=== PATIENT | female | born 1935 | race Caucasian/White ===

== ENCOUNTER 2017-05-05 15:44 | Emergency (ER) | payer OTHER, MEDICARE ==
[2017-05-05 15:56] VITALS: BP 199/84; BMI 27.1
[2017-05-05] MEDS ORDERED: NS 1000 ML 1,000 ML ONE (16:01)
[2017-05-05] MEDS ORDERED: NS 1000 ML 1,000 ML IV ONE (16:10)
[2017-05-05 16:17] LABS: BASOPHILS % (AUTO) 0.6 % (0.2-1.0); EOSINOPHILS # (AUTO) 0.1 x10^3/uL (0.0-0.2); HEMOGLOBIN 14.9 g/dL (12.0-16.0); LYMPHOCYTES % (AUTO) 18.2 % (21.0-51.0); MEAN CORPUSCULAR VOLUME 94.3 fL (80.0-100.0); MEAN PLATELET VOLUME 9.2 fL (7.4-11.0); MONOCYTES # (AUTO) 0.5 x10^3/uL (0.3-0.8); MONOCYTES % (AUTO) 9.7 % (0.0-13.0); NEUTROPHILS % (AUTO) 70.5 % (42.0-75.0); PLATELET COUNT 238 X10^3/uL (150.0-450.0); RED BLOOD COUNT 4.66 X10^6/uL (3.5-5.4); RED CELL DISTRIBUTION WIDTH 13.9 % (11.6-16.5); WHITE BLOOD COUNT 5.6 X10^3/uL (3.6-10.0)
[2017-05-05 16:33] LABS: ALANINE AMINOTRANSFERASE 256 Units/L (12-78); ALBUMIN 3.6 g/dL (3.4-5.0); ALKALINE PHOSPHATASE 116 Units/L (46-116); ASPARTATE AMINO TRANSFERASE 96 Units/L (15-37); BLOOD UREA NITROGEN 17 mg/dL (7-18); CALCIUM 9.2 mg/dL (8.5-10.1); CARBON DIOXIDE 30.1 mmol/L (21-32); CHLORIDE 102 mmol/L (98-107); CREATININE 1.07 mg/dL (0.55-1.02); SODIUM 141 mmol/L (136-145); TOTAL PROTEIN 7.2 g/dL (6.4-8.2); eGFR BLACK RACES > 60 (>60); eGFR NON BLACK RACES 52 (>60)
--- NOTE | 2017-05-05 16:45 | DR.GENAD ---
HPI - PCP Primary Care Physician: Shyam MCDERMOTT - Complaint/Symptoms Chief Complaint:: SICK WITH THE VIRUS SINCE . SLIPPED IN BATHROOM 4 DAYS AGO AND INJURED HEAD. IS TAKING BLOOD THINNERS AND FELL AGAIN THIS AM WHEN GETTING INTO BED. PAIN TO THORASIC SPINE AREA PAIN RADIATES TO ANTEROIR RIB AREA Self Treatment fo Chief Complaint: TYLENOL FOR PAIN - Nurses notes reviewed Nurses Notes Review: Yes - Source History Provided: Patient - Mode of Arrival Mode of Arrival: Wheelchair - Timing Onset of Chief Complaint: 04/23/17 PMH - PMH Past Medical History: Yes Past Medical History Comment: AFIB, THYROID PROBLEM SEENG AND HAD A BIOPSY Past Surgical History: Yes Surgical History: Hysterectomy, Ortho Surgery Past Surgical History Comment: KIDNEY - Family History History of Family Medical Conditions: No - Social History Type of Tobacco Use: None Alcohol Use: None Do you use any recreational Drugs:: No Lives With: Alone Lives Where: Home - infectious screening In the last 2 months have you had wt loss of >10#?: YES Have you had fever, night sweats or hemotysis?: No Have you traveled outside the country in the last 6 months?: No Isolation: Standard PE - Vital Signs Vitals: Temperature 97.5 F Pulse Rate 67 Respiratory Rate 16 Blood Pressure 199/84 O2 Sat by Pulse Oximetry 94 ROR - Labs Reviewed Result Diagrams: 05/05/17 16:05 05/05/17 16:05 Laboratory: WBC 5.6 X10^3/uL (3.6-10.0) 05/05/17 16:05 RBC 4.66 X10^6/uL (3.5-5.4) 05/05/17 16:05 Hgb 14.9 g/dL (12.0-16.0) 05/05/17 16:05 Hct 44.0 % (36.0-47.0) 05/05/17 16:05 MCV 94.3 fL (80.0-100.0) 05/05/17 16:05 MCH 32.0 pg (27.0-34.0) 05/05/17 16:05 MCHC 34.0 g/dL (33.0-35.0) 05/05/17 16:05 RDW 13.9 % (11.6-16.5) 05/05/17 16:05 Plt Count 238 X10^3/uL (150.0-450.0) 05/05/17 16:05 MPV 9.2 fL (7.4-11.0) 05/05/17 16:05 Neut % 70.5 % (42.0-75.0) 05/05/17 16:05 Lymph % 18.2 % (21.0-51.0) L 05/05/17 16:05 [place] % 9.7 % (0.0-13.0) 05/05/17 16:05 Eos % 1.0 % (0.9-2.9) 05/05/17 16:05 Baso % 0.6 % (0.2-1.0) 05/05/17 16:05 Neut # 4.0 x10^3/uL (2.2-4.8) 05/05/17 16:05 Lymph # 1.0 X10^3/uL (1.3-2.9) L 05/05/17 16:05 [place] # 0.5 x10^3/uL (0.3-0.8) 05/05/17 16:05 Eos # 0.1 x10^3/uL (0.0-0.2) 05/05/17 16:05 Baso # 0.0 X10^3/uL (0.0-0.1) 05/05/17 16:05 Absolute Nucleated RBC 0.1 /100WBC 05/05/17 16:05 Sodium 141 mmol/L (136-145) 05/05/17 16:05 Corrected Sodium TNP 05/05/17 16:05 Potassium 3.7 mmol/L (3.5-5.1) 05/05/17 16:05 Chloride 102 mmol/L (98-107) 05/05/17 16:05 Carbon Dioxide 30.1 mmol/L (21-32) 05/05/17 16:05 BUN 17 mg/dL (7-18) 05/05/17 16:05 Creatinine 1.07 mg/dL (0.55-1.02) H 05/05/17 16:05 Est GFR (MDRD) Af Amer > 60 (>60) 05/05/17 16:05 Est GFR (MDRD) Non-Af 52 (>60) L 05/05/17 16:05 Glucose 94 mg/dL (65-99) 05/05/17 16:05 Calcium 9.2 mg/dL (8.5-10.1) 05/05/17 16:05 Corrected Calcium TNP 05/05/17 16:05 Total Bilirubin 0.50 mg/dL (0.2-1.0) 05/05/17 16:05 AST 96 Units/L (15-37) H 05/05/17 16:05 ALT 256 Units/L (12-78) H 05/05/17 16:05 Alkaline Phosphatase 116 Units/L (46-116) 05/05/17 16:05 Total Protein 7.2 g/dL (6.4-8.2) 05/05/17 16:05 Albumin 3.6 g/dL (3.4-5.0) 05/05/17 16:05 Globulin 3.6 g/dL (2.5-4.5) 05/05/17 16:05 Albumin/Globulin Ratio 1.0 Ratio (1.1-2.1) L 05/05/17 16:05 Specimen Type Clean catch urine 05/05/17 17:11 Urine Color Yellow (YELLOW) 05/05/17 17:11 Urine Appearance Clear (CLEAR) 05/05/17 17:11 Urine pH 7.0 (5.0 - 8.0) 05/05/17 17:11 Ur Specific Ivel 1.005 (1.000-1.030) 05/05/17 17:11 Urine Protein Negative (NEGATIVE) 05/05/17 17:11 Urine Glucose (UA) Negative (NEGATIVE) 05/05/17 17:11 Urine Ketones Negative (NEGATIVE) 05/05/17 17:11 Urine Occult Blood Negative (NEGATIVE) 05/05/17 17:11 Urine Nitrite Positive (NEGATIVE) 05/05/17 17:11 Urine Bilirubin Negative (NEGATIVE) 05/05/17 17:11 Urine Urobilinogen Normal (NORMAL) 05/05/17 17:11 Ur Leukocyte Esterase 1+ (NEGATIVE) 05/05/17 17:11 Urine RBC 0-2 /HPF (NEGATIVE) 05/05/17 17:11 Urine WBC 0-2 /HPF (NEGATIVE) 05/05/17 17:11 Ur Squamous Epith Cells Negative /HPF (NEGATIVE) 05/05/17 17:11 Urine Bacteria 2+ /HPF (NEGATIVE) 05/05/17 17:11 Ur Culture Indicated? Yes/culture set up 05/05/17 17:11 - Discharge Plan Condition: Stable Prescriptions: Ketorolac Tromethamine [Toradol Tab] 10 mg PO BID PRN #12 tab PRN Reason: Pain Sulfamethoxazole-Trimethoprim [BACTRIM DS TAB 800/160 MG *] 1 tab PO BID #20 tab Tramadol HCl 50 mg PO DAILY PRN #10 tablet PRN Reason: - Follow ups/Referrals Follow ups/Referrals: LEONARD MCDERMOTT [Primary Care Provider] - 3 days - Instructions Instructions: Cephalhematoma, Back Pain, Adult, [id number], Rib Contusion, Urinary Tract Infection, Adult, [id number] Additional Instructions: RETURN TO ED IF WORSE.
[2017-05-05 17:18] LABS: BILIRUBIN,URINE NEGATIVE (NEGATIVE); BLOOD/HEMOGLOBIN,URINE NEGATIVE (NEGATIVE); GLUCOSE, URINE NEGATIVE (NEGATIVE); KETONES,URINE NEGATIVE (NEGATIVE); LEUKOCYTE ESTERASE ,URINE 1+ (NEGATIVE); NITRITES,URINE POSITIVE (NEGATIVE); PROTEIN,URINE NEGATIVE (NEGATIVE); UROBILINOGEN,URINE NORMAL (NORMAL)
[2017-05-05] MEDS ORDERED: TORADOL 30 MG VIAL IM ONE (17:24)
[2017-05-05 17:27] LABS: APPEARANCE,URINE CLEAR (CLEAR); BACTERIA,URINE 2+ /HPF (NEGATIVE); COLOR,URINE YELLOW (YELLOW); RBC,URINE 0-2 /HPF (NEGATIVE); SQUAMOUS EPITHELIAL CELL,UR NEGATIVE /HPF (NEGATIVE)
[2017-05-05] MEDS ORDERED: TORADOL 60 MG VIAL IVP ONE (17:29)
[2017-05-05] MEDS ORDERED: TORADOL 15 MG VIAL ONE (17:31)
--- NOTE | 2017-05-05 17:36 | CT ---
History: Fell in bathroom 4 days ago and fall again this morning with thoracic back pain Study: CT thoracic spine without contrast. Sagittal and coronal reformations were provided. Findings: There is normal alignment without fracture or compression demonstrated. Osteopenia is sugge sted. There are mild degenerative osteophytes. The visualized posterior ribs appear intact. There are degenerative osteophytes about the lower thoracic facet joints. Impression: Lower thoracic facet joint osteoarthritis, no fracture demonstrated. Reported By:
--- NOTE | 2017-05-05 17:43 | CT ---
History: Fell 4 days ago injuring head and fell again this morning. Patient on blood thinners. Study: CT head without contrast. Sagittal and coronal reformations were provided. Findings: The ventricles and sulci are moderately enlarged without mass effect. There is [id number] rate diffuse patchy periventricular white matter low attenuation. There is no intracranial hemorrhage or mass and there is no subdural collection of fluid. The calvarium is intact. 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 No acute disease is demons trated. Reported By:
== END 2017-05-05 19:41 | disposition home or self-care (01) ==
LOC: ER 16:15
DX: S00.93XA Contusion of unspecified part of head, initial encounter (principal); N39.0 Urinary tract infection, site not specified; G31.9 Degenerative disease of nervous system, unspecified; B96.29 Other Escherichia coli [E. coli] as the cause of diseases classified elsewhere; W19.XXXA Unspecified fall, initial encounter; Y92.89 Other specified places as the place of occurrence of the external cause
CPT/HCPCS: 36415; 70450; 72128; 80053; 81001; 85025; 87086; 87088; 87186; 96365; 96367; 96374; 99282; 99283; A4222

== ENCOUNTER 2017-05-12 11:21 | Emergency (ER) | payer OTHER, MEDICARE ==
[2017-05-12 11:33] VITALS: BMI 27.4
--- NOTE | 2017-05-12 11:44 | DR.GENAD ---
HPI - PCP Primary Care Physician: MARK - HPI Comment HPI Comment: HISTORY BELOW. - Complaint/Symptoms Chief Complaint Doctors Comments: FELL OUT OF HER BED AND IS COMPLAINING OF HEADACHE, RT FOREHEAD HEMATOMA, RIGHT FACIAL AND NECK PAIN AND RIGHT FOREARM PAIN. RECENT FEQUENT FALL NOTED. NO LOC. BRUISING LEFT FACE AND NECK. ON XARELTO. Chief Complaint:: PATIENT STATED SHE FELL OUT OF HER BED 3 DAYS AGO AND HIT THE RIGHT SIDE OF HER FACE ON THE BED SIDE TABLE. - Nurses notes reviewed Nurses Notes Review: Yes - Source History Provided: Patient - Mode of Arrival Mode of Arrival: Wheelchair - Timing Onset of Chief Complaint: 05/09/17 Came on: Suddenly - Duration Duration: Constant Duration: Days - Severity Severity: Moderate PMH - PMH Past Medical History: Yes Past Medical History: Hypertension Past Surgical History: Yes Surgical History: Hysterectomy, Ortho Surgery - Family History History of Family Medical Conditions: No - Social History Does patient currently use any type of tobacco product: No Have you used tobacco products in the last 12 months: No Type of Tobacco Use: None Does any household member use tobacco: No Alcohol Use: None Do you use any recreational Drugs:: No Lives With: Family Lives Where: Home - infectious screening In the last 2 months have you had wt loss of >10#?: NO Have you had fever, night sweats or hemotysis?: No Have you traveled outside the country in the last 6 months?: No Isolation: Standard ROS - Review of Systems Constitutional: No Symptoms Reported Eyes: No Symptoms Reported ENTM: No Symptoms Reported Respiratoy: No Symptoms Reported Cardiovascular: No Symptoms Reported Gastrointestinal/Abdominal: No Symptoms Reported Genitourinary: No Symptoms Reported Neurological: Headache, Weakness, Problems Walking Musculoskeletal: Muscle Pain Integumentary: Change in Color Hematologic/Lymphatic: Easy Bleeding, Easy Bruising Endocrine: No Symptoms Reported All Other Systems: Reviewed and Negative PE - Vital Signs Vitals: Temperature 98.7 F Pulse Rate [Right Brachial] 65 Pulse Rate 62 Respiratory Rate 17 Blood Pressure [Right Arm] 158/68 Blood Pressure 182/75 O2 Sat by Pulse Oximetry 95 - General Limitations: No Limitations General Appearance: Alert - Head Head Exam: Other (RT FOREHEAD HEMATOMA WITH BRUISING.) - Eyes Eye exam: Normal Appearance, PERRL, EOMI, Other (RIGHT FACE AND NECK BRUISING.) . negative: Scleral Icterus, Conjunctival Injection - ENT ENT Exam: Normal External Ear Exam External Ear Exam: Normal External Inspection TM/Canal Exam: Bilateral Normal Nose Exam: Normal Nose Exam Mouth Exam: Normal Inspection Throat Exam: Normal Inspection - Neck Neck Exam: Trachea Midline, Tenderness - Chest Chest Inspection: Symmetric Chest Wall Rise - Respiratory Respiratory Exam: Normal Lung Sounds Bilat Respiratory Exam: Bilateral Clear to Auscultation - Cardiovascular Cardiovascular Exam: Regular Rate, Normal Rhythm, Normal Heart Sounds - Abdominal Exam Abdominal Exam: Normal Inspection - Extremities Extremities Exam: Tenderness (RT FOREARM AND ELBOW SWOLLEN AND TENDER.), Edema - Back Back Exam: Tenderness, Paraspinal Tenderness (LOWERBACK) - Neurologic Neurological Exam: Alert, Oriented X3 - Psychiatric Psychiatric Exam: Normal Affect, Normal Mood - Skin Skin Exam: Erythema MDM - Additional Information Additional Information Obtained From: Family - Differential Diagnosis Differential Diagnosis: BRUISING, CONTUSION, SPRAIN, FRATURE Course - Treatment Treatment: SEE ORDERS. - Education/Counseling Education/Counseling: Patient, Family, Education Educated On: Treatment, Diagnosis, Needs for Follow Up ROR - Labs Reviewed Laboratory Results Reviewed?: Yes Result Diagrams: 05/12/17 12:22 05/12/17 12:22 Laboratory: WBC 6.2 X10^3/uL (3.6-10.0) 05/12/17 12: RBC 4.36 X10^6/uL (3.5-5.4) 05/12/17 12: Hgb 13.8 g/dL (12.0-16.0) 05/12/17 12: Hct 42.0 % (36.0-47.0) 05/12/17 12: MCV 96.2 fL (80.0-100.0) 05/12/17 12:22 MCH 31.6 pg (27.0-34.0) 05/12/17 12: MCHC 32.8 g/dL (33.0-35.0) L 05/12/17 12: RDW 13.9 % (11.6-16.5) 05/12/17 12: Plt Count 253 X10^3/uL (150.0-450.0) 05/12/17 12: MPV 9.7 fL (7.4-11.0) 05/12/17 12: Neut % 72.8 % (42.0-75.0) 05/12/17 12: Lymph % 14.5 % (21.0-51.0) L 05/12/17 12: [place] % 10.9 % (0.0-13.0) 05/12/17 12: Eos % 0.8 % (0.9-2.9) L 05/12/17 12:22 Baso % 1.0 % (0.2-1.0) 05/12/17 12: Neut # 4.5 x10^3/uL (2.2-4.8) 05/12/17 12: Lymph # 0.9 X10^3/uL (1.3-2.9) L 05/12/17 12: [place] # 0.7 x10^3/uL (0.3-0.8) 05/12/17 12: Eos # 0.1 x10^3/uL (0.0-0.2) 05/12/17 12: Baso # 0.1 X10^3/uL (0.0-0.1) 05/12/17 12: Absolute Nucleated RBC 0.0 /100WBC 05/12/17 12:22 Sodium 138 mmol/L (136-145) 05/12/17 12:22 Corrected Sodium TNP 05/12/17 12:22 Potassium 4.4 mmol/L (3.5-5.1) 05/12/17 12:22 Chloride 102 mmol/L (98-107) 05/12/17 12:22 Carbon Dioxide 25.5 mmol/L (21-32) 05/12/17 12:22 BUN 16 mg/dL (7-18) 05/12/17 12:22 Creatinine 1.20 mg/dL (0.55-1.02) H 05/12/17 12:22 Est GFR (MDRD) Af Amer 55 (>60) L 05/12/17 12:22 Est GFR (MDRD) Non-Af 46 (>60) L 05/12/17 12:22 Glucose 94 mg/dL (65-99) 05/12/17 12:22 Calcium 8.8 mg/dL (8.5-10.1) 05/12/17 12:22 Corrected Calcium 9.4 mg/dL (8.5-10.1) 05/12/17 12:22 Total Bilirubin 0.50 mg/dL (0.2-1.0) 05/12/17 12:22 AST 55 Units/L (15-37) H 05/12/17 12:22 ALT 85 Units/L (12-78) H 05/12/17 12:22 Alkaline Phosphatase 102 Units/L (46-116) 05/12/17 12:22 Creatine Kinase 49 Units/L (26-192) 05/12/17 12:22 CK-MB (CK-2) < 1.0 ng/mL (0-4.0) 05/12/17 12:22 CK/CKMB % Calc 2.0 % (<4) 05/12/17 12:22 Troponin I < 0.02 ng/mL (0-1.5) 05/12/17 12:22 Total Protein 6.7 g/dL (6.4-8.2) 05/12/17 12:22 Albumin 3.3 g/dL (3.4-5.0) L 05/12/17 12:22 Globulin 3.4 g/dL (2.5-4.5) 05/12/17 12:22 Albumin/Globulin Ratio 1.0 Ratio (1.1-2.1) L 05/12/17 12:22 - XRAY XRAY Interpreted by: Radiologist XRAY Findings: REPORT DISCUSS WITH AND SIGNIFICANT OTHER. - EKG Rhythm: NSR (EKG NOTED) - Diagnosis Discharge Problem: Contusion of scalp, face, or neck, excluding eyes, Sprain of neck, Headache, Musculoskeletal pain - Discharge Plan Disposition: HOME, SELF-CARE Condition: Stable - Follow ups/Referrals Follow ups/Referrals: JACQUIE MCDERMOTT [Primary Care Provider] - 2 days MOHINI FERNÁNDEZ [STAFF PHYSICIAN] - 2 days UMA MIRZA [STAFF PHYSICIAN] - 05/13/17 - Instructions Instructions: Musculoskeletal Pain, Radial Head Fracture, [id number], Hematoma Additional Instructions: RETURN TO ED IF WORSE. SEE DR. MIRZA IN AM IN HIS [facility] OFFICE.
[2017-05-12] MEDS ORDERED: ZOFRAN INJ 4 MG VIAL IVP ONE (12:23)
--- NOTE | 2017-05-12 12:28 | RAD ---
Examination: Right forearm, two views History: Recent fall Findings: The distal radius and ulna appear normal. However there is suggestion of a fracture of the radial head. This is incompletely evaluated without dedicated elbow views. Impression: Possible radial head fracture. See above. Recommend standard views of the right elbow. Reported By:
--- NOTE | 2017-05-12 12:28 | RAD ---
HISTORY: Status post fall 3 days prior. Right-sided rib pain. Study: AP portable chest Comparison: None Findings: The lungs are clear. No evidence of pneumothorax is noted. The heart size is normal. A right shoul linwood prosthesis is present. I see no definite rib fractures. IMPRESSION: 1. No radiographic evidence of acute cardiopulmonary disease. 2. I see no definite evidence of a rib fracture. Reported By:
--- NOTE | 2017-05-12 12:33 | CT ---
HISTORY: Head injury, swelling Study: CT head without contrast Comparison: 05/05/2017 Findings: The ventricles are normal in size shape and position. There is decreased attenuation in the periventr icular white matter suggestive of small vessel vascular disease. There is age-related cortical atroph y present. There is no definite evidence for recent or remote CVA, hemorrhage, mass lesion, or extra- axial fluid collection. There is a subcutaneous hematoma over the right frontal bone. The underlying calvarium is intact. IMPRESSION: No definite acute intracranial abnormality Atrophy Small vessel disease Reported By:
[2017-05-12] MEDS ORDERED: ZOFRAN INJ 4 MG VIAL ONE (12:38)
--- NOTE | 2017-05-12 12:39 | CT ---
HISTORY: Neck pain and injury. Study: CT cervical spine without contrast Comparison: none. Technique: Multiple axial images of the C-spine were obtained without the administration of IV contr ast. Sagittal and coronal reformats were performed and reviewed. Findings: There is slight anterolisthesis of C3 on C4 observed. No evidence for acute fracture or subluxation can be identified. No central canal compromise by bony osteophyte formation or fracture fragment ret ropulsion can be identified. There is a moderate to severe, diffuse, cervical spondylosis and diffuse , mild to moderate cervical facet joint DJD observed. No locked facet joint is seen. There is no visi ble subluxation or posterior element abnormality of the cervical spine. No lytic bony lesions or endp late erosive changes are seen. The surrounding paraspinous and C-spine soft tissues are unremarkable in their noncontrasted appearance. If the patient's clinical signs persist, then follow-up MRI imagin g of the cervical spine is recommended. IMPRESSION: 1. Negative exam of the cervical spine for a displaced fracture or jumped facet joints. 2. Moderate to severe cervical spondylosis and degenerative facet joint DJD. Reported By:
--- NOTE | 2017-05-12 12:45 | CT ---
HISTORY: Injury, fall, facial swelling Study: Maxillofacial CT without contrast Comparison: None Technique: Axial noncontrast images with coronal and sagittal reformats. Dose reduction procedures we re used with mA/kv adjusted for body size. Findings: There is a subcutaneous soft tissue hematoma overlying the right frontal bone. The right frontal bone underlying the hematoma is intact. The globes are intact. The retro-orbital soft tissues are normal. There is no evidence for nasal bone fracture. No definite maxillofacial fracture is identified. No d efinite orbital fracture is identified. The mandible appears intact. IMPRESSION: No fracture identified Subcutaneous soft tissue hematoma overlying the right frontal region. Reported By:
[2017-05-12 12:57] LABS: BASOPHILS # (AUTO) 0.1 X10^3/uL (0.0-0.1); EOSINOPHILS # (AUTO) 0.1 x10^3/uL (0.0-0.2); EOSINOPHILS % (AUTO) 0.8 % (0.9-2.9); HEMOGLOBIN 13.8 g/dL (12.0-16.0); LYMPHOCYTES # (AUTO) 0.9 X10^3/uL (1.3-2.9); LYMPHOCYTES % (AUTO) 14.5 % (21.0-51.0); MEAN CORPUSCULAR HEMOGLOBIN 31.6 pg (27.0-34.0); MEAN CORPUSCULAR HGB CONC 32.8 g/dL (33.0-35.0); MEAN CORPUSCULAR VOLUME 96.2 fL (80.0-100.0); MEAN PLATELET VOLUME 9.7 fL (7.4-11.0); MONOCYTES # (AUTO) 0.7 x10^3/uL (0.3-0.8); MONOCYTES % (AUTO) 10.9 % (0.0-13.0); NEUTROPHILS # (AUTO) 4.5 x10^3/uL (2.2-4.8); NEUTROPHILS % (AUTO) 72.8 % (42.0-75.0); PLATELET COUNT 253 X10^3/uL (150.0-450.0); RED BLOOD COUNT 4.36 X10^6/uL (3.5-5.4); RED CELL DISTRIBUTION WIDTH 13.9 % (11.6-16.5); WHITE BLOOD COUNT 6.2 X10^3/uL (3.6-10.0)
[2017-05-12 13:07] LABS: BLOOD UREA NITROGEN 16 mg/dL (7-18); CALCIUM 8.8 mg/dL (8.5-10.1); CARBON DIOXIDE 25.5 mmol/L (21-32); CHLORIDE 102 mmol/L (98-107); SODIUM 138 mmol/L (136-145); TROPONIN I < 0.02 ng/mL (0-1.5); eGFR BLACK RACES 55 (>60); eGFR NON BLACK RACES 46 (>60)
[2017-05-12 13:12] LABS: ALANINE AMINOTRANSFERASE 85 Units/L (12-78); ALBUMIN 3.3 g/dL (3.4-5.0); ALKALINE PHOSPHATASE 102 Units/L (46-116); ASPARTATE AMINO TRANSFERASE 55 Units/L (15-37); COR CA(FOR HYPOALB) 9.4 mg/dL (8.5-10.1); CREATINE KINASE 49 Units/L (26-192); CREATINE KINASE MB < 1.0 ng/mL (0-4.0); TOTAL PROTEIN 6.7 g/dL (6.4-8.2)
--- NOTE | 2017-05-12 16:48 | RAD ---
History: Status post fall with right elbow laceration Technique: Three views of the right elbow Comparison:NONE Findings: There is severe ulnohumeral and moderate radio capitellar osteoarthrosis. There is no acute fracture or dislocation demonstrated. No displaced fat pads are seen to suggest an elbow effusion. Impression: 1. No acute osseous abnormalities identified. 2. Moderate to severe osteoarthrosis. Reported By:
[2017-05-12 17:44] VITALS: BP 158/68
== END 2017-05-12 17:48 | disposition home or self-care (01) ==
LOC: ER 11:25
DX: S00.03XA Contusion of scalp, initial encounter (principal); S00.83XA Contusion of other part of head, initial encounter; S10.93XA Contusion of unspecified part of neck, initial encounter; S13.9XXA Sprain of joints and ligaments of unspecified parts of neck, initial encounter; R51 Headache; M79.1 Myalgia; W06.XXXA Fall from bed, initial encounter; Y92.9 Unspecified place or not applicable
CPT/HCPCS: 36415; 70450; 70486; 71045; 72125; 73070; 73090; 80053; 82550; 82553; 84484; 85025; 93005; 93010; 96365; 96374; 99283; 99285; A4222; J2405

== ENCOUNTER 2017-09-11 16:22 | Emergency (ER) | payer OTHER, MEDICARE ==
[2017-09-11 16:38] VITALS: BP 167/91; BMI 26.3
--- NOTE | 2017-09-11 17:19 | DR.GENAD ---
HPI - PCP Primary Care Physician: Dr. Parrish - Complaint/Symptoms Chief Complaint:: On Friday09/02/17 pt tripped over a piece of furniture and fell straight onto her buttocks. Pt had a sudden onset of sharp shooting pain from tail bone down both thighs and into her vagina. Pain is exacerbated by walking and alleviated by laying on left side. Self Treatment fo Chief Complaint: Tylenol 1000mg about 9AM today with no relief - Source History Provided: Patient - Mode of Arrival Mode of Arrival: Wheelchair - Timing Onset of Chief Complaint: 09/02/17 PMH - PMH Past Medical History: Yes Past Medical History: Anxiety, COPD, Hypertension Past Medical History Comment: Afib Past Surgical History: Yes Surgical History: Hysterectomy, Ortho Surgery Past Surgical History Comment: partial colectomy. right TKA. cervial fusion - Family History History of Family Medical Conditions: No - Social History Does patient currently use any type of tobacco product: No Have you used tobacco products in the last 12 months: No Type of Tobacco Use: None Does any household member use tobacco: No Alcohol Use: None Do you use any recreational Drugs:: No Lives With: Friend Lives Where: Home - infectious screening In the last 2 months have you had wt loss of >10#?: NO Have you had fever, night sweats or hemotysis?: No Have you traveled outside the country in the last 6 months?: No Isolation: Standard ROS - Review of Systems Eyes: No Symptoms Reported ENTM: No Symptoms Reported Respiratoy: No Symptoms Reported Cardiovascular: No Symptoms Reported Gastrointestinal/Abdominal: No Symptoms Reported Genitourinary: No Symptoms Reported Neurological: No Symptoms Reported Musculoskeletal: Back Pain Integumentary: No Symptoms Reported Hematologic/Lymphatic: No Symptoms Reported Endocrine: No Symptoms Reported Psychiatric: No Symptoms Reported All Other Systems: Reviewed and Negative PE - Vital Signs Vitals: Temperature 97.6 F Pulse Rate 67 Respiratory Rate 20 Blood Pressure [Right Arm] 158/68 Blood Pressure 167/91 O2 Sat by Pulse Oximetry 99 - General Limitations: No Limitations General Appearance: Alert, In No Apparent Distress - Head Head Exam: Normal Inspection, Atraumatic - Eyes Eye exam: Normal Appearance, PERRL, EOMI - ENT ENT Exam: Normal Exam External Ear Exam: Normal External Inspection TM/Canal Exam: Bilateral Normal Nose Exam: Normal Nose Exam, Sinus Tenderness Mouth Exam: Normal Inspection Throat Exam: Normal Inspection - Neck Neck Exam: Normal Inspection, Full ROM - Chest Chest Inspection: Normal Inspection - Respiratory Respiratory Exam: Normal Lung Sounds Bilat Respiratory Exam: Bilateral Clear to Auscultation - Cardiovascular Cardiovascular Exam: Regular Rate, Normal Rhythm - Abdominal Exam Abdominal Exam: Normal Inspection Abdominal Tenderness: negative: RUQ, RLQ, LUQ, LLQ, Epigastrium, Suprapubic, Diffuse, Mild, Moderate, Severe, Other - Extremities Extremities Exam: Full ROM - Back Back Exam: Paraspinal Tenderness (lumbar area) - Neurologic Neurological Exam: Alert, Oriented X3, CN II-XII Intact - Psychiatric Psychiatric Exam: Normal Affect - Skin Skin Exam: Warm, Dry, Intact Course - Reevaluation 1st: Unchanged ROR - XRAY XRAY Interpreted by: Radiologist (Lumbar spine: Prior transpedicular fusion and laminectomy at L4-5. Lumbar alignment appears normal. Vertebral body heights are preserved. Therre is multilevel spondylosis present and disc space narrowing. No evidence for acute fracture or subluxation. Vascular calcifications are noted. There is osteopenia noted which reduces sensitivity to detect nondisplaced fractures.Impression: Osteopenia with degenerative and postsurgical changes of the lumbar spine. No acute abnormality identified.) - Diagnosis Discharge Problem: Lumbar pain Degenerative joint disease Qualifiers: Osteoarthritis location: spine Spinal region: lumbar Spinal osteoarthritis complication: unspecified spinal osteoarthritis Qualified Code(s): M47.816 - Spondylosis without myelopathy or radiculopathy, lumbar region - Discharge Plan Condition: Stable - Follow ups/Referrals Follow ups/Referrals: NFD,None [Primary Care Provider] - 3 days - Instructions
--- NOTE | 2017-09-11 18:56 | RAD ---
HISTORY: Pain after fall Study: Three views lumbar spine Comparison: None Findings: Prior transpedicular fusion and laminectomy at L4-5 as noted. Lumbar alignment appears normal. Verte bral body heights are preserved. There is multilevel spondylosis present and disc space narrowing.No evidence for acute fracture or subluxation. Vascular calcifications are noted. There is osteopenia n oted which reduces sensitivity to detect nondisplaced fractures. IMPRESSION: 1. Osteopenia with degenerative and postsurgical changes of the lumbar spine. No acute abnormality id entified. Reported By:
[2017-09-11] MEDS ORDERED: ULTRAM PO ONE (19:17)
[2017-09-11] MEDS ORDERED: BENADRYL CAP 50 MG PO ONE (19:17)
[2017-09-11] MEDS ORDERED: ULTRAM ONE (19:20)
[2017-09-11] MEDS ORDERED: BENADRYL CAP/TAB 25 MG PO ONE (19:20)
== END 2017-09-11 19:25 | disposition home or self-care (01) ==
LOC: ER 16:42
DX: M47.816 Spondylosis without myelopathy or radiculopathy, lumbar region (principal); M54.5 Low back pain; R06.01 Orthopnea; R60.1 Generalized edema; W19.XXXA Unspecified fall, initial encounter
CPT/HCPCS: 72100; 93306; 99282

== ENCOUNTER → 2017-09-11 | Outpatient (CLI) | payer OTHER, MEDICARE | LOC: RAD 15:18 | PROVIDERS: ATTEND Obstetrics & Gynecology Obstetrics | DX: R06.01 Orthopnea (principal); R60.1 Generalized edema | CPT/HCPCS: 93306 ==